=== PATIENT | male | born 1985 | race Caucasian/White ===

== ENCOUNTER 2023-08-10 20:29 | Emergency (ER) | payer BC, SELFPAY ==
[2023-08-10 20:31] VITALS: BP 140/90
[2023-08-10 20:58] LABS: % Basophils 0.5 % (0-2); % Eosinophils 0.8 % (0-6); % Immature Granulocytes 0.3 % (0-0.5); % Lymphocytes 10.4 % (20.5-51.1); % Monocytes 4.9 % (1.7-9.3); % Neutrophils 83.1 % (42.2-75.2); Absolute Basophils 0.1 10^3/uL (0-0.2); Absolute Eosinophils 0.1 10^3/uL (0-0.7); Absolute Lymphocytes 1.2 10^3/uL (1.2-3.4); Absolute Monocytes 0.6 10^3/uL (0.1-0.6); Absolute Neutrophils 9.3 10^3/uL (1.4-6.5); Hematocrit 42.2 % (39.0-52.0); Mean Corp Hgb Conc. 35.5 g/dL (33.0-37.0); Mean Corpuscular Hgb 32.3 pg (27.0-31.0); Mean Corpuscular Volume 90.9 fL (80.0-94.0); Mean Platelet Volume 10.1 fL (7.4-10.4); Nucleated Red Blood Cells % 0 % (-); Platelet Count 212 10^3/uL (130-400); Red Blood Cell Count 4.64 10^6/uL (4.70-6.10); Red Cell Dist. Width 12.1 % (11.5-14.5); White Blood Cell Count 11.2 10^3/uL (4.8-10.8)
[2023-08-10 21:03] LABS: ALT (SGPT) 57 U/L (0-50); AST (SGOT) 31 U/L (17-59); Albumin 4.3 g/dl (3.5-5.0); Alkaline Phosphatase 73 U/L (38-126); Blood Urea Nitrogen 18 mg/dl (9-20); Calcium 9.7 mg/dl (8.4-10.2); Carbon Dioxide 30 mmol/L (22-30); Chloride 95 mmol/L (98-107); Glucose 156 mg/dl (70-99); Potassium 3.4 mmol/L (3.5-5.1); Sodium 133 mmol/L (135-145); Total Bilirubin 0.7 mg/dl (0.2-1.3); Total Protein 6.5 g/dl (6.3-8.2); eGFR > 60.00
--- NOTE | 2023-08-10 21:18 | ED.GENMED ---
History of Present Illness
General
Chief Complaint: Fainting/Passed Out
Source: patient
Exam Limitations: none
Time Seen by Provider: 08/10/23 20:56
Nursing documentation reviewed up to this point in time: agreed with
Travel History
Have you had any contact with someone who has COVID-19?: No
Do you have any symptoms of coronavirus? Fever > 100 degrees, chills, cough, shortness of breath, sore throat, loss of taste or smell, muscle aches, or headache?: No
History of Present Illness
History of Present Illness:
38-year-old male past medical history of A-fib currently rhythm controlled with flecainide, hypertension presenting to the emergency department today with concerns of syncopal episode occurring at the urgent care prior to arrival. He claims that he
was there after he had a distal avulsion of his fingertip he had a bandage placed but after seeing his finger felt lightheaded and passed out. Lasted for roughly 60 seconds said he had some ongoing lightheadedness for a period of time after this as
well blood pressure was also seemingly low at the time as well. Denies any specific chest pain at the time did notice some A-fib earlier today that he does occasionally get.
Review of Systems
Review of Systems
Allergies reviewed?: Yes
All Other Systems: ROS reviewed and negative except as documented in HPI and ROS
Phy Exam
Physical Exam
Physical Exam:
GENERAL: Alert , in no apparent distress
EYE: pupils equal and reactive
NECK: Supple, no significant adenopathy.
ENT: o/p clr, mmm.
CARDIAC: Regular rate and rhythm .
LUNGS: Clear breath sounds bilaterally, no acute respiratory distress, no wheezes/rales/rhonchi
ABDOMEN: Soft, without focal tenderness, no r/g, no cvat
NEUROLOGICAL: Alert and oriented, no focal neuro deficits
SKIN: Warm and dry, skin intact.
MUSCULOSKELETAL: No edema, well perfused.
PSYCH: Normal and appropriate interaction.
Course
Orders/Labs/Results
Orders:
Orders
08/10/23 20:38
Electrocardiogram (*1) Urgent
Reason for Study: Syncope
EKG- Treatment ONCE
08/10/23 20:41
CMP [Comprehensive Metabolic Panel] Urgent
Complete Blood Count/With Diff Urgent
Abnormal Lab Results
08/10/23
20:41
WBC 11.2 H 10^3/uL
(4.8-10.8)
RBC 4.64 L 10^6/uL
(4.70-6.10)
MCH 32.3 H pg
(27.0-31.0)
Absolute Neuts (auto) 9.3 H 10^3/uL
(1.4-6.5)
Neutrophils % 83.1 H %
(42.2-75.2)
Lymphocytes % 10.4 L %
(20.5-51.1)
Sodium 133 L mmol/L
(135-145)
Potassium 3.4 L mmol/L
(3.5-5.1)
Chloride 95 L mmol/L
(98-107)
Glucose 156 H mg/dl
(70-99)
ALT 57 H U/L
(0-50)
08/10/23 20:41
08/10/23 20:41
Vital Signs
Initial and Last Documented VS:
Initial Vital Signs
Temp Pulse Resp BP Pulse Ox
97.8 F 86 18 140/90 100
08/10/23 20:31 08/10/23 20:31 08/10/23 20:31 08/10/23 20:31 08/10/23 20:31
Last Documented Vital Signs
Temp Pulse Resp BP Pulse Ox
97.8 F 86 18 140/90 100
08/10/23 20:31 08/10/23 20:31 08/10/23 20:31 08/10/23 20:31 08/10/23 20:31
MDM/Problems Addressed
MDM/Problems Addressed:
30-year-old male presenting to the emergency department today with concerns of syncopal episode prior to arrival when he was getting his finger repaired after a distal fingertip avulsion also got a tetanus shot. Denies associated chest pain did
have some mild palpitations but that improved after receiving flecainide which he does take daily. Otherwise here he claims that he is asymptomatic no chest pain he initially claims that he would like to leave. EKG was reviewed normal labs showing
very slight electrolyte abnormalities but otherwise no emergent findings. Was explained to him that this could be vasovagal. Is also possible could be related to his A-fib though he believes this is unlikely considering he was not in A-fib during
the event. He has no ongoing chest pain or shortness of breath no symptoms consistent with a PE or life-threatening etiology. He claims to be following up closely as an outpatient but otherwise was given strict return precautions.
*Critical Care Note
Total Time (30-74mins, 75-104mins- exclusive of procedures): Not Applicable
ED Attending Note
-
Portions of this chart may have been created with voice recognition software.� Occasional wrong word or��sound alike� substitutions may have occurred due to the inherent limitations of voice recognition software.
Discharge Plan
Departure
Patient Disposition: Home (Routine Discharge)
Date of Disposition: 08/10/23
Time of Disposition: 21:18
Patient with high blood pressure during this ER visit?: No
Condition: Good
Covid-19: Not Applicable
Discharge Problem:
Syncope
Instructions: Syncope (Fainting) (DC)
Prescriptions:
No Action
verapamil 180 mg Tablet Extended Release
180 mg PO DAILY
losartan 25 mg Tablet
25 mg PO DAILY
Referrals:
Jamel Corona MD [Family Provider] -
Activity Restrictions/Additional Instructions:
You came to emergency department today after a syncopal episode. Here you had labs without emergent findings but did show a slightly low sodium and chloride level. Please follow closely to have this reassessed. Return to the emergency department
immediately for any recurrence of symptoms.
Interventions
Interventions:
*Risk Screen - Suicide Last Done: 08/10/23 20:31
*Neglect/Abuse Screening Last Done: 08/10/23 20:31
[2023-08-10 21:28] VITALS: BP 151/98
== END 2023-08-10 21:29 | disposition home or self-care (01) ==
LOC: EMR 20:29
PROVIDERS: Emergency Medicine; EMERGENCY PHYSICIAN Emergency Medicine; FAMILY PHYSICIAN Internal Medicine
DX: R55 Syncope and collapse (principal); I48.91 Unspecified atrial fibrillation; I10 Essential (primary) hypertension
CPT/HCPCS: 99283; 80053; 85025; 93005

== ENCOUNTER 2024-09-24 22:14 | Emergency (ER) | payer BC, SELFPAY ==
[2024-09-24 22:21] VITALS: BP 165/124
[2024-09-24 22:24] VITALS: BP 174/122
[2024-09-24 22:39] VITALS: BMI 23.3
[2024-09-24 22:43] VITALS: BP 158/118
[2024-09-24 23:00] VITALS: BP 162/108
[2024-09-24 23:00] LABS: % Basophils 0.4 % (0-2); % Eosinophils 1.6 % (0-6); % Immature Granulocytes 0.2 % (0-0.5); % Lymphocytes 21.5 % (20.5-51.1); % Monocytes 6.9 % (1.7-9.3); % Neutrophils 69.4 % (42.2-75.2); Absolute Eosinophils 0.1 10^3/uL (0-0.7); Absolute Lymphocytes 1.9 10^3/uL (1.2-3.4); Absolute Monocytes 0.6 10^3/uL (0.1-0.6); Absolute Neutrophils 6.2 10^3/uL (1.4-6.5); Hematocrit 44.5 % (39.0-52.0); Hemoglobin 15.5 g/dL (13.0-18.0); Mean Corp Hgb Conc. 34.8 g/dL (33.0-37.0); Mean Corpuscular Hgb 31.4 pg (27.0-31.0); Mean Corpuscular Volume 90.1 fL (80.0-94.0); Mean Platelet Volume 9.9 fL (7.4-10.4); Nucleated Red Blood Cells % 0 % (-); Platelet Count 221 10^3/uL (130-400); Red Blood Cell Count 4.94 10^6/uL (4.70-6.10); Red Cell Dist. Width 12.8 % (11.5-14.5); White Blood Cell Count 8.9 10^3/uL (4.8-10.8)
[2024-09-24 23:11] LABS: INR 0.93; PT 12.8 Sec (11.4-14.6)
[2024-09-24 23:17] LABS: ALT (SGPT) 74 U/L (0-50); AST (SGOT) 40 U/L (17-59); Albumin 4.5 g/dl (3.5-5.0); Alkaline Phosphatase 52 U/L (38-126); Blood Urea Nitrogen 21 mg/dl (9-20); Calcium 9.4 mg/dl (8.4-10.2); Carbon Dioxide 33 mmol/L (22-30); Chloride 98 mmol/L (98-107); Estimated Creatinine Clearance 96 ml/min; Glucose 108 mg/dl (70-99); Potassium 3.6 mmol/L (3.5-5.1); Sodium 140 mmol/L (135-145); Total Bilirubin 0.7 mg/dl (0.2-1.3); Total Protein 6.8 g/dl (6.3-8.2); eGFR > 60.00
[2024-09-24 23:27] LABS: Troponin I < 0.012 ng/ml
[2024-09-25] VITALS: BP 160/107
[2024-09-25 01:00] VITALS: BP 155/114
[2024-09-25 02:00] VITALS: BP 161/115
[2024-09-25 02:25] LABS: Lipase 65 U/L (23-300)
[2024-09-25 02:30] LABS: Troponin I < 0.012 ng/ml
--- NOTE | 2024-09-25 02:41 | ED.GENMED ---
History of Present Illness
<LUPILLO Rojas - Last Filed: 09/25/24 05:05>
General
Chief Complaint: Cardiac Symptoms
Source: patient and spouse
Exam Limitations: none
Time Seen by Provider: 09/25/24 02:17
History of Present Illness
History of Present Illness:
39 y/o male pt with a PMH of GERD, ADHD, PVCs, afib, presenting to ED for left pectoral chest pain and nausea that occurred after dinner. Hx of GERD has seen GI in the past tried 'protonix and everything else they prescribed' with no relief. Pt
states nausea resolved on its own. Chest pain is reproducible with palpation of the left side of the chest. Pt reports associated 'purple' hands and feet that occurred for about an hour. States this has been going on for several months in his feet
but usually resolves fast but tonight it took about an hour and occurred in his hands as well. Pt showed a photo of his feet for reference, it did look purple. Feet are cold on exam compared to rest of the body, but he has brisk capillary refill and
strong pedal pulses. Pt also states he has been getting 'odd rashes' over the past 6 to 9 months where circular areas of redness appear on his left flank then turn purple and then resolve on their own. Sometimes pruritic and slightly elevate. Went
to when it first occurred they told him it might be shingles but he denies any vesicular abruptions. Now concerned because it is showing up on his left scapula and anterior right upper extremity, has not been to a head of design. Pt denies any
fevers, headaches, SOB, palpitations, abdominal pain, V/D, urinary symptoms, numbness, tingling, weakness. Has been taking Tadalafil almost daily for 1 year, trying for a baby. Hikes often, hx of tick bites, no recent travel. No recent illness or
sick contacts.
Review of Systems
<LUPILLO Rojas - Last Filed: 09/25/24 05:05>
Review of Systems
Allergies reviewed?: Yes
Other source history: family
Constitutional: Reports no symptoms
EENT: Reports no symptoms
Respiratory: Reports no symptoms
Cardiac: Reports chest pain
ABD/GI: Reports nausea
: Reports no symptoms
Musculoskeletal: Reports muscle pain and back pain
Skin: Reports rash
Neurological: Reports no symptoms
Endocrine: Reports no symptoms
Hematologic/Lymphatic: Reports no symptoms
Phy Exam
<LUPILLO Rojas - Last Filed: 09/25/24 05:05>
General Physical Exam
General Presentation: well appearing and no apparent distress
General age: appears stated age
General Skin: warm, dry and flushed
General Habitus: normal
General Mental: alert
General Hydration: appears well hydrated
ENT Exam
ENT Exam: TM's normal, pharynx normal, neck supple and normocephalic
Eye Exam
Eye Exam: PERRL and conjunctiva normal
Cardiovascular Exam
Cardiovascular Exam: regular rate/rhythm, no gallop, no murmur and normal peripheral pulses
Pulmonary Exam
Pulmonary Exam: lungs clear, no respiratory distress and no cough
Cough: no cough
Gastrointestinal Exam
Gastrointestinal Exam: normal bowel sounds, non tender, soft and non distended
Palpation: generalized: No tenderness
Neurological Exam
Neurological Exam: alert, oriented x3 and no sensory deficits
Musculoskeletal Exam
Musculoskeletal Exam: other (left chest tenderness to palpation)
Skin Exam
Skin Exam: warm/dry, redness and other (Circular area of erythema on the left scapular region and right brachial region)
Course
<LUPILLO Rojas - Last Filed: 09/25/24 05:05>
Orders/Labs/Results
Orders:
Orders
09/24/24 22:27
EKG [Electrocardiogram (*1)] Urgent
Reason for Study: Chest Pain
EKG- Treatment ONCE
09/24/24 22:51
Comprehensive Metabolic Panel Urgent
Lipase Urgent
Comment: ADDED
Prothrombin Time Urgent
Troponin I Urgent
09/24/24 22:52
Complete Blood Count/With Diff Urgent
09/25/24 01:40
EKG [Electrocardiogram (*1)] Urgent
Reason for Study: Chest Pain
EKG- Treatment ONCE
09/25/24 01:50
Add On- LAB Urgent
Tests Added?: lipase
09/25/24 01:54
Troponin I Urgent
09/25/24 03:37
Lyme Progressive Urgent
Abnormal Lab Results
09/24/24 09/24/24
22:51 22:52
MCH 31.4 H pg
(27.0-31.0)
Carbon Dioxide 33 H mmol/L
(22-30)
BUN 21 H mg/dl
(9-20)
Glucose 108 H mg/dl
(70-99)
ALT 74 H U/L
(0-50)
09/24/24 22:52
09/24/24 22:51
Vital Signs
Initial and Last Documented VS:
Initial Vital Signs
Temp Pulse Resp BP Pulse Ox
98.6 F 105 18 165/124 98
09/24/24 22:21 09/24/24 22:21 09/24/24 22:21 09/24/24 22:21 09/24/24 22:21
Last Documented Vital Signs
Temp Pulse Resp BP Pulse Ox
98.6 F 88 23 157/112 97
09/24/24 22:21 09/25/24 04:00 09/25/24 04:00 09/25/24 03:20 09/25/24 04:00
<Chalo Denson, DO - Last Filed: 09/25/24 04:43>
Orders/Labs/Results
Orders:
Orders
09/24/24 22:27
EKG [Electrocardiogram (*1)] Urgent
Reason for Study: Chest Pain
EKG- Treatment ONCE
09/24/24 22:51
Comprehensive Metabolic Panel Urgent
Lipase Urgent
Comment: ADDED
Prothrombin Time Urgent
Troponin I Urgent
09/24/24 22:52
Complete Blood Count/With Diff Urgent
09/25/24 01:40
EKG [Electrocardiogram (*1)] Urgent
Reason for Study: Chest Pain
EKG- Treatment ONCE
09/25/24 01:50
Add On- LAB Urgent
Tests Added?: lipase
09/25/24 01:54
Troponin I Urgent
09/25/24 03:37
Lyme Progressive Urgent
Abnormal Lab Results
09/24/24 09/24/24
22:51 22:52
MCH 31.4 H pg
(27.0-31.0)
Carbon Dioxide 33 H mmol/L
(22-30)
BUN 21 H mg/dl
(9-20)
Glucose 108 H mg/dl
(70-99)
ALT 74 H U/L
(0-50)
09/24/24 22:52
09/24/24 22:51
Vital Signs
Initial and Last Documented VS:
Initial Vital Signs
Temp Pulse Resp BP Pulse Ox
98.6 F 105 18 165/124 98
09/24/24 22:21 09/24/24 22:21 09/24/24 22:21 09/24/24 22:21 09/24/24 22:21
Last Documented Vital Signs
Temp Pulse Resp BP Pulse Ox
98.6 F 88 23 157/112 97
09/24/24 22:21 09/25/24 04:00 09/25/24 04:00 09/25/24 03:20 09/25/24 04:00
<LUPILLO Rojas - Last Filed: 09/25/24 05:05>
MDM/Problems Addressed
Differential Diagnosis Includes:
Lyme carditis
<LUPILLO Rojas - Last Filed: 09/25/24 05:05>
*Critical Care Note
Total Time (30-74mins, 75-104mins- exclusive of procedures): Not Applicable
<LUPILLO Rojas - Last Filed: 09/25/24 05:05>
Update Note
Update Note:
I did a manual BP - 162/106
ED Attending Note
<LUPILLO Rojas - Last Filed: 09/25/24 05:05>
-
Portions of this chart may have been created with voice recognition software.� Occasional wrong word or��sound alike� substitutions may have occurred due to the inherent limitations of voice recognition software.
<Chalo Denson DO - Last Filed: 09/25/24 04:43>
ED Attending Note
Patient seen and examined by attending physician: Yes
I performed the substantive portion of visit, reviewed & personally made and approve the management plan that is documented in note by myself or TONY.: Yes
ED Attending Note:
39-year-old male presents to the emergency department with hypertension. Patient states that he has had blood pressure issues for the last year. He is followed by [facility] cardiology. Patient does have a history of paroxysmal atrial
fibrillation but he is not maintained on any NOACs. Patient was on antihypertensives but stopped them because they were making him somnolent. 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 He drinks 'a pitcher of coffee 'every day. He also states that
on occasion his hands and feet turn purple. They usually resolve on their own in minutes but tonight they stayed purple for an hour. He reports that his mom has Raynaud's and has similar symptoms. Patient states that he did have some chest
discomfort this afternoon but that resolved. denies current chest pain or shortness of breath. Is accompanied by his who has seen the skin discoloration.
Patient was seen in conjunction with the PA student. I have reviewed and agree with the history and treatment plan presented. On my independent physical exam, patient is awake, alert, and oriented x3, no acute distress. Heart is regular rate and
rhythm. Lungs are clear to auscultation bilaterally without wheezes rales or rhonchi present. Abdomen is soft, tender. Skin is warm and dry. There is no evidence of Raynaud's. Moves all 4 extremities.
Patient is hypertensive. He does take tadalafil as they are attempting to start a family. I asked him to suspend the tadalafil usage while on antihypertensive. I will prescribe a small dose of lisinopril. He will call his cardiology office today
and discuss his hypertension with them.
Discharge Plan
Departure
Patient Disposition: Home (Routine Discharge)
Date of Disposition: 09/25/24
Time of Disposition: 04:40
Patient with high blood pressure during this ER visit?: Yes
Condition: Good
Discharge Problem:
Hypertension, Chest pain
Instructions: Chest Pain NON-[facility] [employer] Sales Representative Follow Up, BLOOD PRESSURE
Prescriptions:
New
lisinopril 10 mg tablet
10 mg PO DAILY Qty: 30 0RF
No Action
verapamil 180 mg Tablet Extended Release
180 mg PO DAILY
losartan 25 mg Tablet
25 mg PO DAILY
Referrals:
Kushal Funk MD [Family Provider] -
Tevin Marcial MD [Active] - Next open appointment
Activity Restrictions/Additional Instructions:
Thank You for choosing [facility].
It was a pleasure meeting you and taking part in your care. We hope for your continued healing and wellness.
Please read discharge instructions in their entirety. However, they are for general education and may not describe your exact diagnosis at discharge. Information on your ER visit and medical conditions were discussed with you along with appropriate
follow up information...
If indicated, please take your medications as instructed and indicated on discharge paperwork.
Please schedule a follow up appointment as directed. Call to schedule an appointment
Please return to the emergency department with ANY change in, persisting, or worsening of symptoms. If any of your symptoms do not improve, or persist, or become more severe within 6-12 hours, please return to the emergency department for further
care.
Please return to the emergency department if you develop a headache, neck pain/stiffness, fever greater than 100.4F, chest pain, shortness of breath, persistent nausea, vomiting, slurred speech, difficulty walking, numbness/tingling, weakness, signs
of infection or any other symptoms that are worrisome to you.
If you have any questions or concerns please do not hesitate to call the Hospital at or E-mail me directly at [email or web address]
Interventions
Interventions:
*Risk Screen - Suicide Last Done: 09/24/24 22:26
*General Assessment Last Done: 09/24/24 22:26
*Neglect/Abuse Screening Last Done: 09/24/24 22:26
*ED- Fall Risk Assessment Last Done: 09/24/24 22:39
*ED COVID-19 Vaccine History Last Done: 09/24/24 22:26
*Nursing Disposition Last Done: 09/25/24 04:49
ED- Pulmonary Assessment Last Done: 09/24/24 22:39
ED- Cardiac Assessment Last Done: 09/24/24 22:39
Discharge Date and Time
Print Language: GERMAN
[2024-09-25 03:20] VITALS: BP 157/112
[2024-09-25 14:12] LABS: Lyme Antibody Screen, EIA Negative (Negative)
== END 2024-09-25 05:07 | disposition home or self-care (01) ==
LOC: EMR 22:14
PROVIDERS: EMERGENCY PHYSICIAN Student in an Organized Health Care Education/Training Program; FAMILY PHYSICIAN Student in an Organized Health Care Education/Training Program
DX: I48.91 Unspecified atrial fibrillation (principal); R07.89 Other chest pain; I10 Essential (primary) hypertension; Z79.899 Other long term (current) drug therapy
CPT/HCPCS: 99284; 80053; 83690; 84484; 85025; 85610; 86618; 93005